=== PATIENT | female | born 1995 | race Caucasian/White ===

== ENCOUNTER 2018-08-27 07:35 | Day surgery (SDC) | payer OTHER ==
[~2018-08-27] VITALS: Ht 162.6 cm; Wt 71.4 kg
[2018-08-27] VITALS (18 sets, daily range): BP systolic 115–138; BP diastolic 54–80; PULSE 9–115; RESP 14–21; Ht 162.6 cm; Wt 71.4 kg
[~2018-08-27 07:35] MED LIST: CEFAZOLIN 2 GM/50 ML (PMX) 50 ML IVPB ONE; SOD CHLORIDE 0.9% 1,000 ML IV ONE; SOD CHLORIDE 0.9% 1,000 ML IV SCH
--- NOTE | 2018-08-27 08:27 | PREAC ---
Date/Time of Note Date/Time of Note DATE: 08/27/18 TIME: 08:26 Anesthesia Eval and Record Evaluation Time Pre-Procedure Interview DATE: 08/27/18 TIME: 08:26 Age 23 Sex female NPO: 8 hrs Preoperative diagnosis right breast mass Planned procedure excision right breast mass Past Medical History Past Medical History: None Surgery & Anesthesia Issues No known issue (never had anesthesia) Meds Anticoagulation: No Beta Carrie within 24 hr: No Reason Beta Carrie not given: Pt. not on B-Carrie No Active Prescriptions or Reported Meds Current Medications Sodium Chloride 1,000 ml @ 75 mls/hr [id number] ONCE IV Last administered on 08/27/18at 07:00; Admin Dose 75 MLS/HR; Start 08/27/18 at 07:00; Stop 08/27/18 at 20:19 Meds reviewed: Yes Allergies Coded Allergies: No Known Allergies (Verified Allergy, Unknown, 08/27/18) Allergies Reviewed: Yes Labs/Studies Labs Reviewed: Reviewed by anesthesiologist test: Negative Pre-procedure Exam Airway: Adequate mouth opening, Adequate thyromental dist Mallampati: Mallampati II Teeth: Normal Lung: Normal Heart: Normal ASA Physical Status ASA physical status: 1 Emergency: None Planned Anesthetic General/MAC: LMA Planned Pain Management Parenteral pain med, Local by surgeon Pre-operative Attestations Prior to commencing anesthesia and surgery, the patient was re-evaluated, there was verification of: *The patient's identity *The results of appropriate recent lab work and preoperative vital signs *The above evaluation not changing prior to induction *Anesthetic plan, risk benefits, alternative and complications discussed with patient/family; questions answered; patient/family understands, accepts and wishes to proceed. CATHY ARDON Aug 27, 2018 08:27
[2018-08-27] MEDS ORDERED: DESFLURANE 15 MIN ONE (09:19)
[2018-08-27] MEDS ORDERED: FENTAnyl 50 MCG/ML VIAL ONE ×2 (09:19→10:08)
[2018-08-27] MEDS ORDERED: CEFAZOLIN 1 GM INJ ONE (09:19)
[2018-08-27] MEDS ORDERED: PROPOFOL 20 ML ONE (09:19)
[2018-08-27] MEDS ORDERED: MIDAZOLAM 1 MG/ML 2 ML INJ ONE (09:19)
[2018-08-27] MEDS ORDERED: LIDOCAINE 2% (SDV) 5 ML INJ ONE (09:19)
[2018-08-27] MEDS ORDERED: METOCLOPRAMIDE 10 MG INJ ONE (09:19)
[2018-08-27] MEDS ORDERED: ONDANSETRON 4 MG INJ ONE (09:53)
[2018-08-27] MEDS ORDERED: FAMOTIDINE 20 MG INJ ONE (09:53)
[2018-08-27] MEDS ORDERED: DEXAMETHASONE 4 MG/ML 5 ML INJ ONE (09:53)
[2018-08-27] MEDS ORDERED: MEPERIDINE 25 MG INJ IV PRN (10:30)
[2018-08-27] MEDS ORDERED: OXYCODONE/ACETAMINOPHEN (5/325) TAB PO PRN ×2 (10:30)
[2018-08-27] MEDS ORDERED: HYDROmorphONE 1 MG/5 ML IV SYRINGE IV PRN ×3 (10:30)
[2018-08-27] MEDS ORDERED: ONDANSETRON 4 MG INJ IV PRN (10:30)
--- NOTE | 2018-08-27 10:44 | SIPON ---
Date/Time of Note Date/Time of Note DATE: 08/27/18 TIME: 10:43 Operative Report Preoperative Diagnosis Right breast mass Postoperative Diagnosis Same Operation/Procedure Performed Excision of right breast mass Surgeon see signature line senior executive assistant Dr Kingsley Anesthesia: general Estimated blood loss: 0 - 10 ml's Transfusion Required none Specimen Right breast mass Grafts/Implants none Complications none MARY ÁLVAREZ MD Aug 27, 2018 10:44
[2018-08-27] MEDS ORDERED: HYDROCODONE/APAP (7.5/325) TAB PO PRN (11:00)
--- NOTE | 2018-08-27 11:37 | OPR ---
DATE OF OPERATION: 08/27/2018 PREOPERATIVE DIAGNOSIS: Right breast mass. POSTOPERATIVE DIAGNOSIS: Right breast mass. OPERATION PERFORMED: Excision of right breast mass. ANESTHESIA: General. ANESTHESIOLOGIST: Nurse market basket maker, Preet Medina. SURGEON: Marvel Gonzales MD RADIO ELECTRICIAN: Kamaljit Davalos MD INDICATIONS FOR PROCEDURE: The patient is a 23-year-old female who presented with an enlarging mass in the upper outer quadrant of her right breast. Radiographically, it appeared to be consistent with a benign process such as a fibroadenoma or benign phyllodes tumor. The patient was very symptomatic . She requested excision. She was counseled as to the benefits. She consented and was scheduled fo r surgery. DESCRIPTION OF PROCEDURE: The patient was brought to the operating theater, placed under general ane sthesia. The right breast was prepped and draped in usual sterile fashion. Approximately 3 to 4 cm curvilinear incision was made directly over the palpable mass. Subcutaneous tissue was dissected wit h cautery as was the underlying breast parenchyma. A well-circumscribed mass consistent with probabl e benign process was identified. It was meticulously dissected from surrounding tissue with cautery. It was elevated, transected, and sent for permanent pathologic analysis. There is some additional tissue posteriorly, it appeared to be a possible satellite tumor, also clinically appeared benign. I t was elevated, transected with cautery and also sent for pathologic analysis. The wound was irrigat ed. Minimal bleeding was controlled with cautery. The skin was then reapproximated with 4-0 Vicryl sutures in interrupted deep dermal fashion, and final skin approximation took place with 5-0 PDS sutu res in subcuticular fashion and Dermabond was applied. The patient tolerated the procedure well. Th e estimated blood loss was 10 mL. There were no complications and the patient was transported in sta ble condition to the recovery room. Dictated By: MARVEL GONZALES MD TL/NTS Conf#: [id number] DID#: [id number] CC: KAMALJIT DAVALOS MD;*EndCC*
--- NOTE | 2018-08-27 12:52 | PAC ---
Date/Time of Note Date/Time of Note DATE: 08/27/18 TIME: 12:51 Post-Anesthesia Notes Post-Anesthesia Note Last documented vital signs Vital Signs Date Temp Pulse Resp B/P (MAP) Pulse Ox O2 O2 Flow FiO2 Time Delivery Rate 08/27/18 97.5 11:02 08/27/18 90 16 115/57 96 Room Air 08:27 (76) Activity: WNL Respiratory function: WNL Cardiovascular function: WNL Mental status: Baseline Pain reasonably controlled: Yes Hydration appropriate: Yes Nausea/Vomiting absent: Yes CATHY ARDON Aug 27, 2018 12:52
== END 2018-08-27 13:33 | disposition home or self-care (01) ==
LOC: SDS 07:35
PROVIDERS: ATTEND Surgery Surgical Oncology
DX: D24.1 Benign neoplasm of right breast (principal)
CPT/HCPCS: 19120; 88307; J0690; J1100; J1170; J2250; J2405; J2765; J3010; J7030; Z7512; Z7610